=== PATIENT | female | born 1945 ===

== ENCOUNTER → 2018-09-14 | Outpatient (CLI) | payer MEDICARE, OTHER ==
[~2018-09-14] MED LIST: ALBU3IS INH; ALBU90OI INH; ASPI81CH PO; ATOR10; BECL25NI PO; Brovana15 MCG/2 M; CITA20; CONEST.625; DILT120 PO; DILT120ERA PO; Ferrous Sulfat325 M2 PO; Flonase 0.05% N16 GM; Gaviscon Foamt1 EACH PO; HYDPAM25 PO; LANS30EC PO; METO50ER; PRAM.5 PO; ROSU10TA PO; TRAZ100; Triamcinolone A15 GM TOP
== END | disposition home or self-care (01) ==
LOC: LAB SHORT 12:14 → LAB 12:14
DX: R30.0 Dysuria (principal)
CPT/HCPCS: 87086

== ENCOUNTER 2022-10-21 16:49 | Inpatient (IN) | payer MEDICARE, OTHER ==
[~2022-10-21] VITALS: Ht 160 cm; Wt 100.5 kg
[2022-10-21 18:25] LABS: BASOPHILS ABSOLUTE AUTO 0.02 K/mm3 (0.00-0.23); BASOPHILS PERCENT AUTO 0 % (0-2); EOSINOPHILS PERCENT AUTO 0 % (0-6); Hematocrit 37.8 % (33.0-51.0); IMMATURE GRAN ABSOLUTE AUTO 0.04 K/mm3 (0.00-0.10); IMMATURE GRAN PERCENT AUTO 0 % (0-1); LYMPHOCYTES ABSOLUTE AUTO 0.47 K/mm3 (0.84-5.20); LYMPHOCYTES PERCENT AUTO 4 % (21-46); MONOCYTES ABSOLUTE AUTO 0.68 K/mm3 (0.16-1.47); MONOCYTES PERCENT AUTO 6 % (4-13); Mean Corpuscular HGB 29.9 pg (26.0-34.0); Mean Corpuscular HGB Conc 31.7 g/dL (31.5-36.5); Mean Corpuscular Volume 94 fL (80-100); Mean Platelet Volume 10.2 fL (9.1-12.4); NEUTROPHILS ABSOLUTE AUTO 10.06 K/mm3 (1.96-9.15); NEUTROPHILS PERCENT AUTO 89 % (41-73); Platelet Count 205 K/mm3 (150-400); RDW Coefficient Variation 14.6 % (11.7-14.2); RDW Standard Deviation 50.3 fL (35.1-46.3); Red Blood Cell Count 4.02 M/mm3 (3.80-5.20); White Blood Cell Count 11.27 K/mm3 (4.00-11.30)
[2022-10-21 18:54] LABS: Albumin, Blood 3.4 g/dL (3.4-5.0); Bilirubin, Total 0.4 mg/dL (0.1-1.0); Bun/Creatinine Ratio 14.2 (12.0-20.0); Calcium, Blood 9.4 mg/dL (8.5-10.1); Creatinine, Blood 1.13 mg/dL (0.40-1.00); Globulin, Blood 3.3 g/dL (2.2-4.0); Total Protein, Blood 6.7 g/dL (6.4-8.2)
[2022-10-21 22:40] VITALS: BP 125/54
[2022-10-21] MEDS ORDERED: AZIT250 (22:47)
[2022-10-21] MEDS ORDERED: TRAZ100 PO (22:47)
[2022-10-22 04:43] LABS: Hematocrit 39.6 % (33.0-51.0); Hemoglobin 12.6 g/dL (11.5-16.0); Mean Corpuscular HGB 29.9 pg (26.0-34.0); Mean Corpuscular HGB Conc 31.8 g/dL (31.5-36.5); Mean Corpuscular Volume 94 fL (80-100); Mean Platelet Volume 10.8 fL (9.1-12.4); Platelet Count 178 K/mm3 (150-400); RDW Coefficient Variation 14.6 % (11.7-14.2); RDW Standard Deviation 50.9 fL (35.1-46.3); Red Blood Cell Count 4.22 M/mm3 (3.80-5.20); White Blood Cell Count 10.31 K/mm3 (4.00-11.30)
[2022-10-22 05:01] LABS: Bun/Creatinine Ratio 19.4 (12.0-20.0); Calcium, Blood 9.1 mg/dL (8.5-10.1); Creatinine, Blood 1.03 mg/dL (0.40-1.00); Magnesium, Blood 1.9 mg/dL (1.6-2.4); Potassium, Blood 4.1 mmol/L (3.5-5.5)
[2022-10-22 05:07] VITALS: BP 123/56
[2022-10-22 05:41] LABS: Adenovirus Not Detected (NOT DETECT); Bordetella pertussis Not Detected (NOT DETECT); Chlamydophila pneumoniae Not Detected (NOT DETECT); Coronavirus 229E Not Detected (NOT DETECT); Coronavirus HKU1 Not Detected (NOT DETECT); Coronavirus NL63 Not Detected (NOT DETECT); Coronavirus OC43 Not Detected (NOT DETECT); Human Metapneumovirus Not Detected (NOT DETECT); Human Rhinovirus/Enterovirus Not Detected (NOT DETECT); Influenza A/2009-H1 Not Detected (NOT DETECT); Influenza A/H1 Not Detected (NOT DETECT); Influenza A/H3 Not Detected (NOT DETECT); Influenza B Not Detected (NOT DETECT); Mycoplasma pneumoniae Not Detected (NOT DETECT); Parainfluenza Virus 1 Not Detected (NOT DETECT); Parainfluenza Virus 2 Not Detected (NOT DETECT); Parainfluenza Virus 3 Not Detected (NOT DETECT); Parainfluenza Virus 4 Not Detected (NOT DETECT); Respiratory Syncytial Virus Not Detected (NOT DETECT); SARS-Cov-2 (COVID-19), BioFire Not Detected (NOT DETECT)
--- NOTE | 2022-10-22 05:54 | NUR ---
SHIFT SUMMARY PT ARRIVED AT APPROX 2240. A/O X4- NO ACUTE RESP DISTRESS, ON 2L NC AND MAINTAINING ABOVE 90%. VITAL SIGNS STABLE THROUGHOUT SHIFT. TELE IN PLACE. PLEASANT AND COOPERATIVE W/ CARE.
[2022-10-22 07:21] VITALS: BP 144/64
[2022-10-22] MEDS ORDERED: IPRAT-ALBUT 0.5-3 ML INH (10:33)
[2022-10-22] MEDS ORDERED: VISBIOME 112.51 EACH PO (10:34)
[2022-10-22] MEDS ORDERED: FLUTICASONE-SA1 EAC9 INH (10:35)
[2022-10-22] MEDS ORDERED: Prednisone10 MG PO (10:36)
--- NOTE | 2022-10-22 13:45 | NUR ---
DISHCARGE PT IS A/O X4. VSS, O2 SATURATION IS >90% ON 3.5L N/C. INDEPENDENT IN ROOM. PT TOLERATING CARDIAC DIET AND VOIDING APPROPRIATELY. DISCHARGE TEACHING WAS PROVIDED AND THE PATIENT WAS RECEPTIVE, AND ASKED QUESTIONS APPROPRIATELY. THE PLAN IS FOR HER TO FOLLOW UP WITH HER PRIMARY CARE, DR. CHAVEZ, WITHIN 3 DAYS. PT WAS ESCORTED OUT OF HER ROOM VIA WHEEL CHAIR WITH HOSPITAL STAFF AND TRANSPORTED HOME BY HER SPOUSE.
== END 2022-10-22 13:53 | disposition home or self-care (01) | DRG 189 ==
LOC: ER 16:49 → PCU 20:29 → SURS 20:30 → MEDS 20:30 → SURS 22:33
PROVIDERS: Nurse Practitioner Acute Care; Physician Assistant; ADMIT Internal Medicine
DX: J96.21 Acute and chronic respiratory failure with hypoxia (principal); J44.1 Chronic obstructive pulmonary disease with (acute) exacerbation; E87.1 Hypo-osmolality and hyponatremia; F32.A Depression, unspecified; Z20.822 Contact with and (suspected) exposure to COVID-19; G25.81 Restless legs syndrome; K21.9 Gastro-esophageal reflux disease without esophagitis; I12.9 Hypertensive chronic kidney disease with stage 1 through stage 4 chronic kidney disease, or unspecified chronic kidney disease; N18.30 Chronic kidney disease, stage 3 unspecified; R73.9 Hyperglycemia, unspecified; F17.210 Nicotine dependence, cigarettes, uncomplicated; T38.0X5A Adverse effect of glucocorticoids and synthetic analogues, initial encounter; E78.5 Hyperlipidemia, unspecified; Z86.73 Personal history of transient ischemic attack (TIA), and cerebral infarction without residual deficits; Z99.81 Dependence on supplemental oxygen; Z90.89 Acquired absence of other organs; Z90.710 Acquired absence of both cervix and uterus; Z98.890 Other specified postprocedural states; Z88.0 Allergy status to penicillin; Z88.2 Allergy status to sulfonamides; Z88.8 Allergy status to other drugs, medicaments and biological substances; Z79.82 Long term (current) use of aspirin; Z79.899 Other long term (current) drug therapy
CPT/HCPCS: 0202U; 36415; 71046; 80048; 80053; 83735; 83880; 84484; 85025; 85027; 93005; 93010; 93306; 94640; 94644; 94664; 94760; 94761; 96365; 96375; 99285-25; A9270; J0456; J1650; J2930; J7050

== ENCOUNTER → 2023-09-27 | Outpatient (CLI) | payer MEDICARE, OTHER ==
[~2023-09-27] MED LIST changes: +AZIT250; +FLUTICASONE-SA1 EAC9 INH; +IPRAT-ALBUT 0.5-3 ML INH; +Prednisone10 MG PO; +TRAZ100 PO; +VISBIOME 112.51 EACH PO
[2023-09-27 20:08] LABS: Bun/Creatinine Ratio 24.5 (12.0-20.0); Calcium, Blood 9.5 mg/dL (8.5-10.1); Creatinine, Blood 1.06 mg/dL (0.40-1.00); Potassium, Blood 4.2 mmol/L (3.5-5.5)
== END | disposition home or self-care (01) ==
LOC: LAB SHORT 17:40 → LAB EV 17:40
PROVIDERS: Hospitalist
DX: I12.9 Hypertensive chronic kidney disease with stage 1 through stage 4 chronic kidney disease, or unspecified chronic kidney disease (principal); N18.9 Chronic kidney disease, unspecified
CPT/HCPCS: 80048

== ENCOUNTER 2024-10-09 01:56 | Day surgery (SDC) | payer MEDICARE, OTHER ==
[2024-10-09] MEDS ORDERED: [UNRECOGNIZED DRUG - OTHER] SC SCH (06:00)
[2024-10-09] MEDS ORDERED: BENRALIZUMAB 30 MG/ML SC SCH (06:00)
[2024-10-09 12:09] VITALS: BP 126/57
[2024-10-09] MEDS ORDERED: SPIR50 PO (12:43)
[2024-10-09] MEDS ORDERED: ARNUITY ELLIP100 MCG INH (12:44)
[2024-10-09] MEDS ORDERED: PRAM.125 PO (12:44)
[2024-10-09] MEDS ORDERED: BREZTRI AEROS10.7 GM INH (12:45)
[2024-10-09] MEDS ORDERED: MULVITA PO (12:45)
== END 2024-10-09 12:28 | disposition home or self-care (01) ==
LOC: ATC 01:56
DX: J82.83 Eosinophilic asthma (principal); J44.9 Chronic obstructive pulmonary disease, unspecified; I10 Essential (primary) hypertension; E78.5 Hyperlipidemia, unspecified; K21.9 Gastro-esophageal reflux disease without esophagitis; Z87.891 Personal history of nicotine dependence; Z79.52 Long term (current) use of systemic steroids; Z79.82 Long term (current) use of aspirin; Z79.899 Other long term (current) drug therapy; Z88.0 Allergy status to penicillin; Z88.2 Allergy status to sulfonamides; Z88.8 Allergy status to other drugs, medicaments and biological substances
CPT/HCPCS: 96372; J0517

== ENCOUNTER 2024-11-06 01:09 | Day surgery (SDC) | payer MEDICARE, OTHER ==
[~2024-11-06 01:09] MED LIST changes: +ARNUITY ELLIP100 MCG INH; +BREZTRI AEROS10.7 GM INH; +MULVITA PO; +PRAM.125 PO; +SPIR50 PO
[2024-11-06] MEDS ORDERED: BENRALIZUMAB 30 MG/ML SC SCH (07:00)
[2024-11-06] MEDS ORDERED: [UNRECOGNIZED DRUG - OTHER] SC SCH (07:00)
[2024-11-06 11:39] VITALS: BP 134/63
== END 2024-11-06 11:39 | disposition home or self-care (01) ==
LOC: ATC 01:09
DX: J82.83 Eosinophilic asthma (principal); J44.9 Chronic obstructive pulmonary disease, unspecified; I10 Essential (primary) hypertension; E78.5 Hyperlipidemia, unspecified; K21.9 Gastro-esophageal reflux disease without esophagitis; Z87.891 Personal history of nicotine dependence; Z79.52 Long term (current) use of systemic steroids; Z79.82 Long term (current) use of aspirin; Z79.899 Other long term (current) drug therapy; Z88.0 Allergy status to penicillin; Z88.2 Allergy status to sulfonamides; Z88.8 Allergy status to other drugs, medicaments and biological substances
CPT/HCPCS: 96372; J0517

== ENCOUNTER 2024-12-04 02:36 | Day surgery (SDC) | payer MEDICARE, OTHER ==
[2024-12-04] MEDS ORDERED: [UNRECOGNIZED DRUG - OTHER] SC SCH (06:00)
[2024-12-04] MEDS ORDERED: BENRALIZUMAB 30 MG/ML SC SCH (06:00)
[2024-12-04 11:30] VITALS: BP 140/50
== END 2024-12-04 11:37 | disposition home or self-care (01) ==
LOC: ATC 02:36
DX: J82.83 Eosinophilic asthma (principal); J44.89 Other specified chronic obstructive pulmonary disease; I10 Essential (primary) hypertension; E78.5 Hyperlipidemia, unspecified; K21.9 Gastro-esophageal reflux disease without esophagitis; Z87.891 Personal history of nicotine dependence; Z79.2 Long term (current) use of antibiotics; Z79.52 Long term (current) use of systemic steroids; Z79.82 Long term (current) use of aspirin; Z79.899 Other long term (current) drug therapy; Z88.0 Allergy status to penicillin; Z88.2 Allergy status to sulfonamides; Z88.8 Allergy status to other drugs, medicaments and biological substances
CPT/HCPCS: 96372; J0517

== ENCOUNTER 2025-01-29 04:23 | Day surgery (SDC) | payer MEDICARE, OTHER ==
[2025-01-29] MEDS ORDERED: [UNRECOGNIZED DRUG - OTHER] SC SCH (06:00)
[2025-01-29] MEDS ORDERED: BENRALIZUMAB 30 MG/ML SC SCH (06:00)
[2025-01-29 10:59] VITALS: BP 136/56
== END 2025-01-29 11:08 | disposition home or self-care (01) ==
LOC: ATC 04:23
DX: J82.83 Eosinophilic asthma (principal); J44.9 Chronic obstructive pulmonary disease, unspecified; I10 Essential (primary) hypertension; E78.5 Hyperlipidemia, unspecified; K21.9 Gastro-esophageal reflux disease without esophagitis; Z87.891 Personal history of nicotine dependence; Z79.899 Other long term (current) drug therapy; Z88.0 Allergy status to penicillin; Z88.2 Allergy status to sulfonamides; Z88.8 Allergy status to other drugs, medicaments and biological substances
CPT/HCPCS: 96372; J0517

== ENCOUNTER 2025-03-28 01:05 | Day surgery (SDC) | payer MEDICARE, OTHER ==
[2025-03-28] MEDS ORDERED: BENRALIZUMAB 30 MG/ML SC SCH (07:25)
[2025-03-28] MEDS ORDERED: [UNRECOGNIZED DRUG - OTHER] SC SCH (07:25)
[2025-03-28 14:45] VITALS: BP 134/67
== END 2025-03-28 14:50 | disposition home or self-care (01) ==
LOC: ATC 01:05
DX: J82.83 Eosinophilic asthma (principal); J44.9 Chronic obstructive pulmonary disease, unspecified; I10 Essential (primary) hypertension; E78.5 Hyperlipidemia, unspecified; K21.9 Gastro-esophageal reflux disease without esophagitis; Z79.899 Other long term (current) drug therapy; Z88.0 Allergy status to penicillin; Z88.8 Allergy status to other drugs, medicaments and biological substances; Z87.891 Personal history of nicotine dependence
CPT/HCPCS: 96372; J0517

== ENCOUNTER 2025-05-21 01:47 | Day surgery (SDC) | payer MEDICARE, OTHER ==
[2025-05-21] MEDS ORDERED: BENRALIZUMAB 30 MG/ML SC SCH (06:00)
[2025-05-21] MEDS ORDERED: [UNRECOGNIZED DRUG - OTHER] SC SCH (06:00)
[2025-05-21 11:15] VITALS: BP 116/54
[2025-05-21] MEDS ORDERED: FASENRA PE30 MG/1 ML SC (11:34)
== END 2025-05-21 11:21 | disposition home or self-care (01) ==
LOC: ATC 01:47
DX: J44.89 Other specified chronic obstructive pulmonary disease (principal); J82.83 Eosinophilic asthma; I10 Essential (primary) hypertension; E78.5 Hyperlipidemia, unspecified; K21.9 Gastro-esophageal reflux disease without esophagitis; Z87.891 Personal history of nicotine dependence; Z79.52 Long term (current) use of systemic steroids; Z79.82 Long term (current) use of aspirin; Z79.899 Other long term (current) drug therapy; Z88.0 Allergy status to penicillin; Z88.2 Allergy status to sulfonamides; Z88.8 Allergy status to other drugs, medicaments and biological substances
CPT/HCPCS: 96372; J0517